=== PATIENT | female | born 1970 | race Caucasian/White ===

== ENCOUNTER 2017-07-29 16:06 | Emergency (ER) | payer OTHER ==
[~2017-07-29] VITALS: Ht 165.1 cm; Wt 79.4 kg
[~2017-07-29 16:06] MED LIST: NAPR500T PO
[2017-07-29 16:18] VITALS: BP 148/94
[2017-07-29] MEDS ORDERED: IBUP-1060 PO (16:27)
[2017-07-29] MEDS ORDERED: CYCL10TA2 PO (16:27)
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
== END 2017-07-29 16:32 | disposition home or self-care (01) ==
LOC: ER 16:06
DX: S39.012A Strain of muscle, fascia and tendon of lower back, initial encounter (principal); I10 Essential (primary) hypertension; F17.200 Nicotine dependence, unspecified, uncomplicated; V43.52XA Car driver injured in collision with other type car in traffic accident, initial encounter; Y93.I9 Activity, other involving external motion; Y92.410 Unspecified street and highway as the place of occurrence of the external cause; Y99.8 Other external cause status
CPT/HCPCS: 99283

== ENCOUNTER 2017-10-23 14:28 | Emergency (ER) | payer OTHER ==
[2017-10-23] MEDS: HYDROcodone/APAP 5/325MG 1 TAB TABLET PO (15:45)
== END 2017-10-23 16:04 | disposition home or self-care (01) ==
LOC: ER 14:28
DX: M51.36 Other intervertebral disc degeneration, lumbar region (principal); I10 Essential (primary) hypertension; Z90.710 Acquired absence of both cervix and uterus
CPT/HCPCS: 72100; 99284

== ENCOUNTER 2018-01-01 11:41 | Emergency (ER) | payer OTHER ==
[2018-01-01] MEDS: HYDROcodone/APAP 5/325MG 1 TAB TABLET PO (12:27)
== END 2018-01-01 14:20 | disposition home or self-care (01) ==
LOC: ER 11:41
DX: S93.401A Sprain of unspecified ligament of right ankle, initial encounter (principal); I10 Essential (primary) hypertension; W10.1XXA Fall (on)(from) sidewalk curb, initial encounter; Y93.89 Activity, other specified; Y99.8 Other external cause status; Y92.89 Other specified places as the place of occurrence of the external cause
CPT/HCPCS: 73610; 99284